=== PATIENT | male | born 1960 | race Caucasian/White ===

== ENCOUNTER 2018-04-23 14:30 | Emergency (ER) | payer BC ==
[~2018-04-23] VITALS: Ht 182.9 cm; Wt 88.4 kg
[~2018-04-23 14:30] MED LIST: ALEVE220 M2 PO; ALPRAZOLAM0.25 MG PO; ASPIR-LOW81 M1 PO; HEART HEALTH A400 MG PO; SERTRALINE HCL100 MG; VITAMIN C1500 MG PO
[2018-04-23 15:45] LABS: HEMATOCRIT 40.5 % (38.0-50.0); HEMOGLOBIN 14.6 G/DL (12.5-16.6); MCV 91.4 FL (86-99); PLATELET COUNT 181 K/uL (156-360); RBC DIS.WIDTH-SD 40.5 % (39-53); RED BLOOD COUNT 4.43 M/uL (4.00-5.50); WHITE BLOOD COUNT 7.4 K/uL (4.1-10.2)
[2018-04-23 15:58] LABS: CHLORIDE 105 mEq/L (99-109); POTASSIUM 3.7 mEq/L (3.7-5.4); SODIUM 140 mEq/L (136-147)
[2018-04-23 16:00] LABS: GLUCOSE 100 mg/dL (70-99)
[2018-04-23 16:04] LABS: CREATININE 0.9 mg/dL (0.6-1.3); GFR ESTIMATE (CALCULATED) > 59 mL/min/ (58.99-99999); UREA NITROGEN (BUN) 17 mg/dL (9-23)
[2018-04-23 16:06] LABS: TROP-I INTERPRETATION NEGATIVE; TROPONIN-I < 0.01 ng/mL (0.0-0.30)
[2018-04-23 17:28] VITALS: BP 121/88
== END 2018-04-23 17:30 | disposition home or self-care (01) ==
LOC: EME 14:30
PROVIDERS: Emergency Medicine
DX: R07.9 Chest pain, unspecified (principal); Z79.82 Long term (current) use of aspirin; Z88.5 Allergy status to narcotic agent
CPT/HCPCS: 71046; 80048; 84484; 85027; 85379; 93005; 99281; 99285; S0028